=== PATIENT | female | born 1970 | race Caucasian/White ===

== ENCOUNTER 2022-06-04 23:41 | Emergency (ER) | payer MEDICAID, OTHER ==
[~2022-06-04] VITALS: Ht 162.6 cm; Wt 93.0 kg
[2022-06-05] MEDS ORDERED: ONDANSETRON HCL 4MG/2ML INJ IV STA (00:10)
[2022-06-05] MEDS ORDERED: MORPHINE SULFATE 4 MG/ML CPJ (NOT FOR IM USE) IV STA (00:10)
[2022-06-05 00:44] LABS: CHLORIDE 104 mEq/L (98-107)
[2022-06-05 01:03] LABS: BASOPHILS % 0.5 % (0.0-2.0); EOSINOPHILS % 1.5 % (0.0-5.0); HEMATOCRIT. 37.6 % (36.0-48.0); HEMOGLOBIN. 12.3 g/dL (12.0-16.0); LYMPHOCYTES % 36.2 % (20.0-50.0); MEAN CORPUSCULAR HEMOGLOBIN 28.2 pg (28.0-32.0); MEAN CORPUSCULAR VOLUME 86.4 fL (81.0-99.0); MEAN PLATELET VOLUME 7.8 fl (7.4-10.4); MONOCYTES % 5.5 % (2.0-8.0); NEUTROPHILS % 56.3 % (40.0-76.0); PLATELET 315 x1000/uL (130-400); RED BLOOD CELL COUNT 4.36 mill/uL (4.2-5.4); RED CELL DISTRIBUTION WIDTH 15.1 % (11.6-14.6)
[2022-06-05] MEDS ORDERED: MORPHINE SULFATE 4 MG/ML CPJ (NOT FOR IM USE) IV ONE (02:29)
[2022-06-05 05:29] VITALS: BP 118/83
[2022-06-05] MEDS ORDERED: HYDR-4001 MT (06:02)
== END 2022-06-05 06:59 | disposition home or self-care (01) ==
LOC: EDSEX 23:41 → ER 23:41
DX: L72.8 Other follicular cysts of the skin and subcutaneous tissue (principal); R07.89 Other chest pain; Z86.718 Personal history of other venous thrombosis and embolism
CPT/HCPCS: 36415; 71045; 71275; 80053; 84484; 85025; 93005; 93970; 96374; 96375; 96376; 99285; J2270; J2405

== ENCOUNTER 2022-10-16 06:26 | Emergency (ER) | payer SELFPAY ==
[~2022-10-16] VITALS: Ht 162.6 cm; Wt 87.0 kg
[~2022-10-16 06:26] MED LIST: HYDR-4001 MT
[2022-10-16] MEDS ORDERED: METOCLOPRAMIDE HCL 10MG/2ML VIAL IV ONE (07:15)
[2022-10-16] MEDS ORDERED: KETOROLAC 30MG/ML VIAL IV ONE (07:15)
[2022-10-16 08:02] VITALS: BP 111/56
[2022-10-16 08:05] LABS: CHLORIDE 101 mEq/L (98-107)
[2022-10-16 08:12] LABS: BASOPHILS % 0.3 % (0.0-2.0); EOSINOPHILS % 1.9 % (0.0-5.0); HEMOGLOBIN. 12.3 g/dL (12.0-16.0); LYMPHOCYTES % 31.1 % (20.0-50.0); MEAN CORPUSCULAR HEMOGLOBIN 27.6 pg (28.0-32.0); MEAN CORPUSCULAR VOLUME 85.5 fL (81.0-99.0); MEAN PLATELET VOLUME 7.4 fl (7.4-10.4); MONOCYTES % 5.7 % (2.0-8.0); PLATELET 292 x1000/uL (130-400); RED BLOOD CELL COUNT 4.45 mill/uL (4.2-5.4); RED CELL DISTRIBUTION WIDTH 15.5 % (11.6-14.6)
== END 2022-10-16 09:52 | disposition left against medical advice (07) ==
LOC: ER 06:26
DX: R40.4 Transient alteration of awareness (principal)
CPT/HCPCS: 36415; 70450; 71045; 80053; 82962; 83880; 84484; 85025; 93005; 96374; 96375; 99285; C1893; J1885; J2765; Z7610

== ENCOUNTER 2023-08-28 19:43 | Emergency (ER) | payer MEDICAID ==
[~2023-08-28] VITALS: Ht 162.6 cm; Wt 86.0 kg
[~2023-08-28 19:43] MED LIST changes: +LAM2 MT; +LEVO137T2 PO; +QUET100T MT; +QUET400T12 PO; +VENL225T3 PO
[2023-08-28 19:55] VITALS: TEMP 98.6; O2SAT 97
[2023-08-28 20:39] LABS: BASOPHILS % 0.2 % (0.0-2.0); EOSINOPHILS % 1.4 % (0.0-5.0); HEMATOCRIT. 37.3 % (36.0-48.0); LYMPHOCYTES % 25.4 % (20.0-50.0); MEAN CORPUSCULAR HEMOGLOBIN 27.7 pg (28.0-32.0); MEAN CORPUSCULAR HGB CONC 32.1 g/dL (31.0-37.0); MEAN CORPUSCULAR VOLUME 86.3 fL (81.0-99.0); MEAN PLATELET VOLUME 7.3 fl (7.4-10.4); MONOCYTES % 5.7 % (2.0-8.0); NEUTROPHILS % 67.3 % (40.0-76.0); PLATELET 290 x1000/uL (130-400); RED BLOOD CELL COUNT 4.32 mill/uL (4.2-5.4); RED CELL DISTRIBUTION WIDTH 15.3 % (11.6-14.6); WHITE BLOOD COUNT 8.2 x1000/uL (4.5-11.0)
[2023-08-28 21:20] LABS: ALANINE AMINOTRANSFERASE 31 IU/L (10-49); ALBUMIN 4.3 g/dL (3.2-4.8); ASPARTATE AMINOTRANSFERASE 24 IU/L (<34); BILIRUBIN TOTAL 0.3 mg/dL (0.1-1.0); CALCIUM 9.6 mg/dL (8.7-10.4); CARBON DIOXIDE 28 mEq/L (21-32); CHLORIDE 104 mEq/L (98-107); CREATININE 0.7 mg/dL (0.6-1.0); GLUCOSE 77 mg/dL (70-105); POTASSIUM 3.5 mEq/L (3.5-5.1); PROTEIN TOTAL 7.3 g/dL (6.0-8.3); SODIUM 139 mEq/L (136-145); UREA NITROGEN BLOOD 9 mg/dL (9-23)
[2023-08-28 22:17] LABS: ALANINE AMINOTRANSFERASE 32 IU/L (10-49); ALBUMIN 4.3 g/dL (3.2-4.8); ASPARTATE AMINOTRANSFERASE 25 IU/L (<34); BILIRUBIN TOTAL 0.3 mg/dL (0.1-1.0); CALCIUM 9.6 mg/dL (8.7-10.4); CARBON DIOXIDE 29 mEq/L (21-32); CHLORIDE 105 mEq/L (98-107); CREATININE 0.6 mg/dL (0.6-1.0); GLUCOSE 77 mg/dL (70-105); POTASSIUM 3.5 mEq/L (3.5-5.1); PROTEIN TOTAL 7.9 g/dL (6.0-8.3); SODIUM 141 mEq/L (136-145); UREA NITROGEN BLOOD 11 mg/dL (9-23)
[2023-08-28 22:20] LABS: CLARITY URINE CLEAR (CLEAR); COLOR URINE YELLOW (YELLOW); GLUCOSE URINE NEGATIVE (NEGATIVE); KETONES URINE TRACE (NEGATIVE); LEUKOCYTE ESTERASE URINE NEGATIVE (NEGATIVE); NITRITE URINE NEGATIVE (NEGATIVE); OCCULT BLOOD URINE 1+ (NEGATIVE); PH URINE 5.5 (4.5-8.0); PROTEIN URINE NEGATIVE (NEGATIVE); SPECIFIC GRAVITY URINE 1.032 (1.005-1.030)
[2023-08-28 22:42] LABS: BACTERIA URINE 2+; SQUAMOUS EPITHELIAL CELL URINE 2+ /lpf (RARE/1+)
[2023-08-29] MEDS: SODIUM CHLORIDE 0.9% 500 ML IV ONE (00:30)
[2023-08-29 00:45] VITALS: BP 125/81; PULSE 85; RESP 16
[2023-08-29] MEDS: KETOROLAC 30MG/ML VIAL IM ONE (00:45)
[2023-08-29] MEDS: CEFTRIAXONE 1GM PREMIX 50 ML IV ONE (02:23)
[2023-08-29] MEDS ORDERED: CEPH500T MT (03:06)
== END 2023-08-29 05:41 | disposition home or self-care (01) ==
LOC: ER 19:43 → EDBEDREQTM 08-29 00:26 → EDBEDREQDT 08-29 00:26 → EDBEDREQ 08-29 00:26 → ER 08-29 05:41
DX: K50.90 Crohn's disease, unspecified, without complications (principal); R10.10 Upper abdominal pain, unspecified; N39.0 Urinary tract infection, site not specified
CPT/HCPCS: 99285; 74176; 81003; 81025; 82962; 83690; 85025; 36415; 96365; 96361; 96372; 80053; J0696; J1885; J7030